=== PATIENT | male | born 1930 | race Caucasian/White ===

== ENCOUNTER → 2016-09-17 | Outpatient (CLI) | payer OTHER ==
[~2016-09-17] MED LIST: AZILECT1 MG PO; MIRAPEX0.25 MG PO; PRAMIPEXOLE DI0.5 MG PO
--- NOTE | ~2016-09-17 | US37 ---
[facility] A Service of [facility] RADIOLOGY TEXT RESULTS PATIENT: ANNETTE BARROW LOCATION: SNIV : 32 UNIT #: [id number] AGE: [address]: Grace Garcia APRN SEX: M ORDER DR: [id number] [address] [address] [id number] O MR#: [id number] Acc #: [id number] NAME: ANNETTE BARROW : 1930 SEX: M STUDY DATE/TIME: 09/17/2016 13:16 UNIT: SNIV ROOM: STUDY DESCRIPTION: US Carotid W/Doppler Bilateral Attending Physician: Grace Garcia A.P.R.N. Referring Physician: Grace Garcia A.P.R.N. Ordering Physician: Staff Doctor Not On Primary Care Physician: Grace Garcia A.P.R.N. MEDICAL IMAGING REPORT This report is preliminary unless electronic signature is present. EXAM Carotid Doppler bilateral 09/17/2016 HISTORY Carotid bruit on physical examination 09/09/2016. Confusion and memory loss, loss of balance and coordination. Benign essential hypertension. Prior carotid endarterectomies in 2011. FINDINGS Lora-scale carotid artery images were obtained as well as Doppler waveform spectral analysis and color flow Doppler imaging. The examination was interpreted according to NASCET criteria. There is no hemodynamically significant stenosis in either carotid artery. Peak systolic velocity in the right and left internal carotid arteries was 76 cm/sec and 80 cm/sec respectively. Antegrade blood flow is seen in both vertebral arteries. There is elevated peak systolic velocity in the left external carotid artery of 267 cm/sec suggesting a degree of stenosis. IMPRESSION 1. No hemodynamically significant stenosis in either internal carotid artery. 2. Antegrade blood flow in both vertebral arteries. 3. Elevated peak systolic velocity in the left external carotid artery suggesting a degree of stenosis. Dictated by... Trenton Kellogg M.D. THIS IS AN ELECTRONICALLY VERIFIED REPORT Trenton Kellogg M.D. at 09/18/2016 8:06 AM KRT/rnr [facility]. [facility] A Service of [facility] RADIOLOGY TEXT RESULTS PATIENT: ANNETTE BARROW LOCATION: SNIV : 32 UNIT #: [id number] AGE: [address]: Grace Garcia APRN SEX: M ORDER DR: TD: 09/17/2016 20:14 JOB #: [id number] MEDICAL IMAGING REPORT Page 1 of 1
== END | disposition home or self-care (01) ==
LOC: SNIV 12:41
DX: R09.89 Other specified symptoms and signs involving the circulatory and respiratory systems (principal)
CPT/HCPCS: 93880